=== PATIENT | male | born 1990 | race Two or more races ===

== ENCOUNTER 2024-06-18 16:18 | Inpatient (IN) | payer OTHER ==
[~2024-06-18] VITALS: Ht 167.6 cm; Wt 87.6 kg
[2024-06-18] MEDS: HYDROcodone-ACET 5/325MG TAB PO ONE (17:21)
[2024-06-18] MEDS: ENOXAPARIN SOD 80 MG/0.8ML SYRINGE SC ONE (17:30)
[2024-06-18 17:33] LABS: Basophils # (auto) 0.1 10 ^3/uL (0-0.2); Eosinophils # (auto) 0.2 10 ^3/uL (0-0.8); Eosinophils % (auto) 3.1 % (0.0-7.0); Hematocrit 47.5 % (41.0-53.0); Lymphocytes # (auto) 1.9 10 ^3/uL (0.4-5.4); Lymphocytes % (auto) 26.7 % (10.0-50.0); Mean Corpuscular Hemoglobin 29.7 pg (28.0-32.0); Mean Corpuscular Hgb Conc. 33.7 g/dL (32.0-36.0); Mean Corpuscular Volume 88.2 fL (80.0-100.0); Monocytes # (auto) 0.5 10 ^3/uL (0-1.3); Monocytes % (auto) 7.1 % (0.0-12.0); Neutrophils # (auto) 4.4 10 ^3/uL (1.6-8.6); Neutrophils % (auto) 62.1 % (37.0-80.0); Nucleated Red Blood Cells % 0.1 %; Platelet Count (auto) 260 10^3/uL (140-450); Red Blood Cells 5.39 10^6/uL (4.5-5.90); Red Cell Distribution Width 12.8 % (11.8-14.3)
[2024-06-18 17:42] LABS: Chloride 105 mmol/L (98-107); Potassium 3.8 mmol/L (3.5-5.1); Sodium 137 mmol/L (136-145)
[2024-06-18 17:43] LABS: Anion Gap 6 (5-15); Calcium 9.9 mg/dL (8.7-10.4); Carbon Dioxide 26 mmol/L (20-31)
[2024-06-18 17:48] LABS: Glucose 108 mg/dL (74-106)
[2024-06-18 17:57] LABS: INR 1.07 (0.9-1.15); Prothrombin Time 11.3 sec (9.3-11.8)
[2024-06-18 18:43] LABS: BUN/Creatinine Ratio 12.1 (10.0-20.0); Blood Urea Nitrogen 13 mg/dL (9-23)
[2024-06-18 19:50] VITALS: RESP 20; O2SAT 98
[2024-06-18] MEDS ORDERED: MORPHINE SULFATE INJ 2 MG/ml SYRG IV PRN ×2 (23:00→23:45)
[2024-06-18] MEDS ORDERED: HYDROcodone-ACET 5/325MG TAB PO PRN (23:00)
[2024-06-18] MEDS ORDERED: DOCUSATE SOD 100 MG CAP PO PRN (23:00)
[2024-06-18] MEDS ORDERED: ACETAMINOPHEN 325 MG TAB PO PRN (23:00)
[2024-06-18] MEDS ORDERED: ONDANSETRON HCL 4 MG/2 ML VIAL IV PRN (23:00)
[2024-06-18] MEDS: SODIUM CHLORIDE 0.9% 1,000 ML IV SCH (23:19)
[2024-06-18] MEDS ORDERED: NITROGLYCERIN 0.4 MG SL TAB SL PRN (23:45)
[2024-06-19 06:13] LABS: Basophils # (auto) 0.1 10 ^3/uL (0-0.2); Basophils % (auto) 0.7 % (0.0-2.0); Eosinophils # (auto) 0.2 10 ^3/uL (0-0.8); Eosinophils % (auto) 2.7 % (0.0-7.0); Hematocrit 45.8 % (41.0-53.0); Hemoglobin 15.6 g/dL (13.5-17.5); Lymphocytes # (auto) 2.8 10 ^3/uL (0.4-5.4); Lymphocytes % (auto) 37.5 % (10.0-50.0); Mean Corpuscular Hemoglobin 29.7 pg (28.0-32.0); Mean Corpuscular Volume 87.6 fL (80.0-100.0); Monocytes # (auto) 0.6 10 ^3/uL (0-1.3); Monocytes % (auto) 8.1 % (0.0-12.0); Neutrophils # (auto) 3.9 10 ^3/uL (1.6-8.6); Nucleated Red Blood Cells % 0.2 %; Platelet Count (auto) 260 10^3/uL (140-450); Red Blood Cells 5.23 10^6/uL (4.5-5.90); Red Cell Distribution Width 13.1 % (11.8-14.3); White Blood Cell 7.6 10^3/uL (4.4-10.8)
[2024-06-19 06:33] LABS: Alanine Aminotransferase 46 U/L (7-40); Albumin 4.5 g/dL (3.2-4.8); Alkaline Phosphatase 197 U/L (46-116); Anion Gap 8 (5-15); Aspartate Aminotransferase 22 U/L (13-40); BUN/Creatinine Ratio 12.6 (10.0-20.0); Bilirubin, Total 0.6 mg/dL (0.2-1.0); Blood Urea Nitrogen 12 mg/dL (9-23); Calcium 9.8 mg/dL (8.7-10.4); Carbon Dioxide 25 mmol/L (20-31); Chloride 104 mmol/L (98-107); Glucose 107 mg/dL (74-106); Potassium 3.8 mmol/L (3.5-5.1); Sodium 137 mmol/L (136-145); Total Protein 7.7 g/dL (5.7-8.2)
[2024-06-19 08:28] VITALS: PULSE 86; RESP 19; O2SAT 94
[2024-06-19] MEDS: ENOXAPARIN SOD 80 MG/0.8ML SYRINGE SC SCH (09:50)
[2024-06-19 11:08] LABS: Triglycerides 89 mg/dL (< 150)
[2024-06-19 11:09] LABS: LDL Cholesterol 106 mg/dL (< 100)
[2024-06-19 11:10] LABS: Cholesterol 167 mg/dL (< 200); HDL Cholesterol 40 mg/dL (40-59)
[2024-06-19] MEDS: IOHEXOL 350 MG/ML 100ML IJ ONE (15:39)
[2024-06-19] MEDS ORDERED: HEPARIN DRIP/D5W 100UNITS/ML 250 ML IV SCH (16:15)
[2024-06-19] MEDS: CLOPIDOGREL BISULFATE 75 MG TAB PO ONE (16:36)
[2024-06-19 17:16] VITALS: PULSE 89; RESP 18; O2SAT 97
[2024-06-19 18:26] LABS: INR 1.06 (0.9-1.15); Partial Thromboplastin Time 28.2 SEC (24.5-34.5); Prothrombin Time 11.2 sec (9.3-11.8)
[2024-06-19 18:42] VITALS: BP 126/71; PULSE 89; RESP 17; TEMP 98.5; O2SAT 96
[2024-06-19 20:00] VITALS: PULSE 84; PULSE 89; RESP 18; O2SAT 97
[2024-06-19] MEDS: HEPARIN DRIP/D5W 100UNITS/ML 250 ML IV SCH (20:15)
[2024-06-19 21:00] VITALS: BP 131/92; PULSE 84; RESP 18; TEMP 98.6; O2SAT 97
[2024-06-20] VITALS (10 sets, daily range): BP systolic 120–140; BP diastolic 79–94; PULSE 72–93; RESP 14–20; TEMP 97.4–98.6; O2SAT 93–100
[2024-06-20 02:28] LABS: Basophils # (auto) 0 10 ^3/uL (0-0.2); Basophils % (auto) 0.5 % (0.0-2.0); Eosinophils # (auto) 0.5 10 ^3/uL (0-0.8); Eosinophils % (auto) 6.2 % (0.0-7.0); Hematocrit 47.6 % (41.0-53.0); Lymphocytes # (auto) 3.4 10 ^3/uL (0.4-5.4); Lymphocytes % (auto) 45.8 % (10.0-50.0); Mean Corpuscular Hemoglobin 29.6 pg (28.0-32.0); Mean Corpuscular Hgb Conc. 33.5 g/dL (32.0-36.0); Mean Corpuscular Volume 88.3 fL (80.0-100.0); Monocytes # (auto) 0.7 10 ^3/uL (0-1.3); Monocytes % (auto) 9.6 % (0.0-12.0); Neutrophils # (auto) 2.8 10 ^3/uL (1.6-8.6); Neutrophils % (auto) 37.9 % (37.0-80.0); Nucleated Red Blood Cells % 0.2 %; Platelet Count (auto) 258 10^3/uL (140-450); Red Blood Cells 5.39 10^6/uL (4.5-5.90); Red Cell Distribution Width 13.2 % (11.8-14.3); White Blood Cell 7.4 10^3/uL (4.4-10.8)
[2024-06-20 02:41] LABS: Alanine Aminotransferase 56 U/L (7-40); Alkaline Phosphatase 188 U/L (46-116); Anion Gap 5 (5-15); Aspartate Aminotransferase 32 U/L (13-40); BUN/Creatinine Ratio 10.3 (10.0-20.0); Blood Urea Nitrogen 10 mg/dL (9-23); Calcium 9.7 mg/dL (8.7-10.4); Carbon Dioxide 24 mmol/L (20-31); Chloride 107 mmol/L (98-107); Glucose 105 mg/dL (74-106); Potassium 4.1 mmol/L (3.5-5.1); Sodium 136 mmol/L (136-145)
[2024-06-20 02:42] LABS: Albumin 4.5 g/dL (3.2-4.8); Bilirubin, Total 0.8 mg/dL (0.2-1.0); Total Protein 7.6 g/dL (5.7-8.2)
[2024-06-20 02:43] LABS: INR 1.07 (0.9-1.15); Prothrombin Time 11.3 sec (9.3-11.8)
[2024-06-20 07:40] LABS: INR 1.07 (0.9-1.15); Partial Thromboplastin Time 53.2 SEC (24.5-34.5); Prothrombin Time 11.3 sec (9.3-11.8)
[2024-06-20 08:50] LABS: Hepatitis B Surface Antigen Negative (Negative)
[2024-06-20 09:11] LABS: Hepatitis C Antibody Negative (Negative)
[2024-06-20 11:09] LABS: INR 1.07 (0.9-1.15); Partial Thromboplastin Time 59.6 SEC (24.5-34.5); Prothrombin Time 11.3 sec (9.3-11.8)
[2024-06-20] MEDS: IODIXANOL 320MG/ML 100ML BTL IV ONE (12:28)
[2024-06-20] MEDS: HEPARIN IN NS 1000Units/500mL 1,500 ML ONE (12:28)
[2024-06-20] MEDS: fentaNYL CITRATE 100 MCG/2 ML VL ONE (14:02)
[2024-06-20] MEDS: MIDAZOLAM HCL 2MG/2ML 2ml VIAL (1mg/ml) ONE (14:02)
[2024-06-20] MEDS: LIDOCAINE 2%HCL (LOCAL ANESTH.) INJ 20ML MDV ONE (14:03)
[2024-06-20] MEDS: HEPARIN SODIUM (PORCINE) 5000 UNITS/ML 1ML VIAL ONE (14:36)
[2024-06-20] MEDS: HYDROmorphone HCL 2 MG/ML VL/or syr ONE (14:40)
[2024-06-20] MEDS: HEPARIN 1,000 UNITS/ml 1ML VIAL ONE (15:11)
[2024-06-20 17:18] LABS: INR 1.14 (0.9-1.15)
[2024-06-20 18:16] LABS: Partial Thromboplastin Time > 139.0 SEC (24.5-34.5)
[2024-06-20] MEDS: HEPARIN DRIP/D5W 100UNITS/ML 250 ML IV SCH (19:30)
[2024-06-21] VITALS (7 sets, daily range): BP systolic 115–139; BP diastolic 80–87; PULSE 82–106; RESP 16–20; TEMP 37.1; O2SAT 94–98
[2024-06-21 01:54] LABS: INR 1.07 (0.9-1.15); Partial Thromboplastin Time 46.1 SEC (24.5-34.5); Prothrombin Time 11.3 sec (9.3-11.8)
[2024-06-21] MEDS: HEPARIN DRIP/D5W 100UNITS/ML 250 ML IV SCH (03:30)
[2024-06-21 05:43] LABS: Basophils # (auto) 0 10 ^3/uL (0-0.2); Basophils % (auto) 0.6 % (0.0-2.0); Eosinophils # (auto) 0.4 10 ^3/uL (0-0.8); Eosinophils % (auto) 5.4 % (0.0-7.0); Hemoglobin 14.8 g/dL (13.5-17.5); Lymphocytes # (auto) 3.2 10 ^3/uL (0.4-5.4); Lymphocytes % (auto) 38.6 % (10.0-50.0); Mean Corpuscular Hemoglobin 29.9 pg (28.0-32.0); Mean Corpuscular Hgb Conc. 32.9 g/dL (32.0-36.0); Mean Corpuscular Volume 90.9 fL (80.0-100.0); Monocytes # (auto) 0.8 10 ^3/uL (0-1.3); Monocytes % (auto) 10.1 % (0.0-12.0); Neutrophils # (auto) 3.8 10 ^3/uL (1.6-8.6); Neutrophils % (auto) 45.3 % (37.0-80.0); Platelet Count (auto) 295 10^3/uL (140-450); Red Blood Cells 4.95 10^6/uL (4.5-5.90); Red Cell Distribution Width 13.1 % (11.8-14.3); White Blood Cell 8.3 10^3/uL (4.4-10.8)
[2024-06-21 05:44] LABS: Chloride 105 mmol/L (98-107); Potassium 3.9 mmol/L (3.5-5.1); Sodium 134 mmol/L (136-145)
[2024-06-21 05:45] LABS: Anion Gap 4 (5-15); Calcium 9.7 mg/dL (8.7-10.4); Carbon Dioxide 25 mmol/L (20-31)
[2024-06-21 05:50] LABS: BUN/Creatinine Ratio 12.1 (10.0-20.0); Blood Urea Nitrogen 11 mg/dL (9-23); Glucose 96 mg/dL (74-106)
[2024-06-21] MEDS ORDERED: APIX5TAB PO (12:31)
[2024-06-21 12:41] LABS: INR 1.07 (0.9-1.15); Partial Thromboplastin Time 46.2 SEC (24.5-34.5); Prothrombin Time 11.3 sec (9.3-11.8)
[2024-06-22 18:06] LABS: Protein S Antigen Free 126 % (61-136); Proten S Antigen Total 130 % (60-150)
[2024-06-24 22:06] LABS: Protein C Antigen 86 % (60-150)
== END 2024-06-21 17:05 | disposition home or self-care (01) | DRG 182 ==
LOC: ER 16:18 → EDSEX 16:18 → TELE 23:32 → TELE-EAST 06-19 16:46
PROVIDERS: ADMIT Nurse Practitioner Family; ATTEND Hospitalist
PROC: 06CY3ZZ Extirpation of Matter from Lower Vein, Percutaneous Approach (ICD-10-PCS; principal; 2024-06-20)
PROC: 06CN3ZZ Extirpation of Matter from Left Femoral Vein, Percutaneous Approach (ICD-10-PCS; 2024-06-20)
PROC: B54CZZ3 Ultrasonography of Left Lower Extremity Veins, Intravascular (ICD-10-PCS; 2024-06-20)
PROC: B519YZZ Fluoroscopy of Inferior Vena Cava using Other Contrast (ICD-10-PCS; 2024-06-20)
PROC: B51CYZZ Fluoroscopy of Left Lower Extremity Veins using Other Contrast (ICD-10-PCS; 2024-06-20)
DX: I82.412 Acute embolism and thrombosis of left femoral vein (principal); I26.99 Other pulmonary embolism without acute cor pulmonale; I82.432 Acute embolism and thrombosis of left popliteal vein; E66.9 Obesity, unspecified; Z68.31 Body mass index [BMI] 31.0-31.9, adult; I82.462 Acute embolism and thrombosis of left calf muscular vein; I82.442 Acute embolism and thrombosis of left tibial vein; I82.452 Acute embolism and thrombosis of left peroneal vein; F10.90 Alcohol use, unspecified, uncomplicated; Y90.9 Presence of alcohol in blood, level not specified; Z68.30 Body mass index [BMI] 30.0-30.9, adult
CPT/HCPCS: 36415; 37187; 71275; 74176; 75710; 80048; 80053; 80061; 81241; 83036; 84443; 85025; 85302; 85305; 85306; 85610; 85730; 86803; 87340; 93306; 93971; 96372; 99152; G0378; J2250; Q9967

== ENCOUNTER 2024-07-07 15:49 | Inpatient (IN) | payer OTHER ==
[~2024-07-07] VITALS: Ht 167.6 cm; Wt 94.9 kg
[~2024-07-07 15:49] MED LIST: APIX5TAB PO
--- NOTE | 2024-07-07 16:42 | ED.PDOC ---
Musculoskeletal HPI Comments 33y M who presents to the ED for chief complaint of lower extremity pain. Pt states he had venogram 2 weeks prior and clot was found in LLE and pt was placed on eliquis and discharged. Pt states he was told to come back if he had any associated pain or swelling near the LLE. Pt states he noticed swelling, bruising and redness to the posterior LLE and came to the ED for further evaluation. Pt otherwise denies fever, cough, shortness of breath, chest pain, headache, dizziness, nausea or vomiting. Pt vitals otherwise stable in the ED. Pt otherwise denies any other symptoms at this time. Chief Complaint: Lower Extremity Time Seen by MD: 16:40 Primary Care Provider: UNKNOWN Reviewed Notes: Medications, Allergies Allergies: Coded Allergies: NO KNOWN ALLERGIES (Unverified , 06/18/24) Home Meds Active Scripts Apixaban Base (ELIQUIS) 5 Mg Tab, 5 MG PO BID, #120 TAB 1 Refill take 10mg (two tabs) twice a day for fisrt 7 days then start taking 5mg (one tab) twice a day Prov:TRAVON BECERRA MD 06/21/24 Information Source: Patient Mode of Arrival: Ambulatory Brought in by: self Past Medical History PAST MEDICAL HISTORY: Denies Surgical History: Denies all surgeries Family History Family History: Reviewed,noncontributory to illness Social History Smoker: Non-Smoker Alcohol: Occasionally Drugs: Denies Drug Use Lives In: Home Constitutional: denies: chills, diaphoresis, fatigue, fever, malaise, sweats, weakness, others EENTM: denies: blurred vision, double vision, ear bleeding, ear discharge, ear drainage, ear pain, ear ringing, eye pain, eye redness, hearing loss, mouth pain, mouth swelling, nasal discharge, nose bleeding, nose congestion, nose pain , photophobia, tearing, throat pain, throat swelling, voice changes, others Respiratory: denies: cough, hemoptysis, orthopnea, SOB at rest, shortness of breath, SOB with excertion, stridor, wheezing, others Cardiovascular: denies: chest pain, dizzy spells, diaphoresis, Dyspnea on exertion, edema, irregular heart beat, left arm pain, lightheadedness, palpitations, PND, syncope, others Gastrointestinal: denies: abdomen distended, abdominal pain, blood streaked bowels, constipated, diarrhea, dysphagia, difficulty swallowing, hematemesis, melena, nausea, poor appetite, poor fluid intake, rectal bleeding, rectal pain, vomiting, others Genitourinary: denies: burning, dysuria, flank pain, frequency, hematuria, incontinence, penile discharge, penile sore, pain, testicle pain, testicle swelling, urgency, others Neurological: denies: dizziness, fainting, headache, left sided numbness, left sided weakness, numbness, paresthesia, pre-existing deficit, right sided numbness, right sided weakness, seizure, speech problems, tingling, tremors, weakness, others Musculoskeletal: reports: joint pain (LLE), joint swelling (LLE); denies: back pain, gout, muscle pain, muscle stiffness, neck pain, others Integumetry: denies: bruises, change in color, change in hair/nails, dryness, laceration, lesions, lumps, rash, wounds, others Allergic/Immunocompromised: denies: Difficulty Healing, Frequent Infections, Hives, Itching, others Hematologic/Lymphatic: denies: anemia, blood clots, easy bleeding, easy bruising, swollen glands, others Endocrine: denies: excessive hunger, excessive sweating, excessive thirst, excessive urination, flushing, intolerance to cold, intolerance to heat, unexplained weight gain, unexplained weight loss, others Psychiatric: denies: anxiety, bipolar disorder, depression, hopeless, panic disorder, schizophrenia, sleepless, suicidal, others All Other Systems: Reviewed and Negative Physical Exam General Appearance: Moderate Distress HEENT: Normal ENT Inspection, Pharynx Normal, TMs Normal Neck: Full Range of Motion, Non-Tender, Normal, Normal Inspection Respiratory: Chest Non-Tender, Lungs Clear, No Accessory Muscle Use, No Respiratory Distress, Normal Breath Sounds Cardiovascular: No Edema, No JVD, No Murmur, No Gallop, Normal Peripheral Pulses, Regular Rate/Rhythm Breast Exam: Deferred Gastrointestinal: No Organomegaly, Non Tender, No Pulsatile Mass, Normal Bowel Sounds, Soft Genitalia: Deferred Pelvic: Deferred Rectal: Deferred Extremities: No calf tenderness, Normal capillary refill, Normal inspection, Normal range of motion, Non-tender, No pedal edema Musculoskeletal : Apperance: Normal Neurologic: Alert, patient placement coordinator II-XII nml as Tested, No Motor Deficits, Normal Affect, Normal Mood, No Sensory Deficits Cerebellar Function: Normal Reflexes: Normal Skin: Dry, Normal Color, Warm Peripheral Pulses: 3+ Radial (R), 3+ Radial (L) Lymphatic: No Adenopathy Was a procedure done? Was a procedure done?: No Differential Diagnosis EXT Differential Diagnosis: Cellulitis, Deep Vein Thrombosis, Compartment Syndrome X-Ray, Labs, Meds, VS Vital Signs Date Time Temp Pulse Resp B/P (MAP) Pulse Ox O2 Delivery O2 Flow Rate FiO2 07/07/24 15:51 98.5 95 18 131/85 (100) 97 Patient alert. History of DVT. Currently on Eliquis. Came in because he was having left lower extremity pain. No calf tenderness. No leg swelling appreciated. No shortness a breath. Respiratory rate within normal limits. Denies chest pain. DVT study shows clot from femoral down. Contact for interventional. Explained to the patient. Was told to follow up with his primary care physician. Was told to come back if there is any problem. Time of 1ST Reevaluation: 17:10 Reevaluation 1ST: Unchanged Patient Education/Counseling: Diagnosis, Treatment Family Education/Counseling: No Family Present Departure 1 Departure Time of Disposition: 18:11 Impression: Primary Impression: Deep vein thrombosis (DVT) of left lower extremity Qualified Codes: I82.412 - Acute embolism and thrombosis of left femoral vein Disposition: ADMITTED INPATIENT Admit to: Med Surg Condition: Guarded Critical Care Note Critical Care Time?: Yes (45 min-critical care time only) Stability Stability form required: No Heart Score Heart Score: Heart Score Response (Comments) Value History N/A 0 EKG N/A 0 Age N/A 0 Risk Factors N/A 0 Troponin N/A 0 Total 0 I personally scribed for BYRON TINAJERO MD ([email or web address]) on 07/07/24 at 16:42. Electronically submitted by Randy Fitzpatrick ([email or web address]). BYRON TINAJERO MD Jul 07, 2024 16:42
--- NOTE | 2024-07-07 18:31 | DVH ---
Bilateral lower extremity venous duplex Clinical History: dvt Comparison: US LT LOWER DVT on DOS: 06/18/24 Technique: Duplex Doppler evaluation of the deep venous systems of both lower extremities from the common femora l veins to the popliteal veins including color Doppler and spectral/pulsed waveform analysis was perf ormed. Findings: RIGHT SIDE: The common femoral vein demonstrates appropriate compressibility and waveform variability. There is compressibility/patency of the great saphenous vein at the proximal thigh. The femoral vein demonstrates appropriate compressibility and waveform variability. The deep femoral vein demonstrates appropriate compressibility and waveform variability. The popliteal vein demonstrates appropriate compressibility and waveform variability. There is normal compressibility at the tibioperoneal trunk. LEFT SIDE: Incompressibility from the superficial femoral vein to the posterior tibial vein. Impression: Left-sided DVT from the superficial femoral vein to the posterior tibial vein. Per outbound supervisor note, the critical findings were discussed with the ordering provider.
[2024-07-07 19:08] LABS: Basophils # (auto) 0.1 10 ^3/uL (0-0.2); Basophils % (auto) 0.7 % (0.0-2.0); Eosinophils # (auto) 0.3 10 ^3/uL (0-0.8); Eosinophils % (auto) 3.2 % (0.0-7.0); Hematocrit 46.8 % (41.0-53.0); Hemoglobin 15.9 g/dL (13.5-17.5); Lymphocytes % (auto) 37.7 % (10.0-50.0); Mean Corpuscular Hemoglobin 29.9 pg (28.0-32.0); Monocytes # (auto) 0.5 10 ^3/uL (0-1.3); Monocytes % (auto) 5.9 % (0.0-12.0); Neutrophils # (auto) 4.2 10 ^3/uL (1.6-8.6); Neutrophils % (auto) 52.5 % (37.0-80.0); Nucleated Red Blood Cells % 0.1 %; Platelet Count (auto) 319 10^3/uL (140-450); Red Blood Cells 5.32 10^6/uL (4.5-5.90); Red Cell Distribution Width 12.9 % (11.8-14.3); White Blood Cell 7.9 10^3/uL (4.4-10.8)
[2024-07-07 19:40] LABS: Chloride 105 mmol/L (98-107); Potassium 3.9 mmol/L (3.5-5.1); Sodium 139 mmol/L (136-145)
[2024-07-07 19:41] LABS: Anion Gap 6 (5-15); Carbon Dioxide 28 mmol/L (20-31)
[2024-07-07 19:46] LABS: BUN/Creatinine Ratio 11.8 (10.0-20.0); Blood Urea Nitrogen 12 mg/dL (9-23); Glucose 102 mg/dL (74-106)
[2024-07-07] MEDS ORDERED: MORPHINE SULFATE INJ 2 MG/ml SYRG IV PRN (20:30)
[2024-07-07] MEDS ORDERED: ONDANSETRON HCL 4 MG/2 ML VIAL IV PRN (20:30)
[2024-07-07] MEDS ORDERED: NITROGLYCERIN 0.4 MG SL TAB SL PRN (20:30)
[2024-07-07] MEDS ORDERED: HYDROcodone-ACET 5/325MG TAB PO PRN (20:30)
[2024-07-07] MEDS: SODIUM CHLOR 0.9% PF (SALINE LOCK) 10ML VIAL/SYR IV SCH (22:21)
[2024-07-07 22:30] VITALS: BP 123/84; PULSE 84; TEMP 98.3
[2024-07-07 22:44] VITALS: BP 118/78; PULSE 72; PULSE 87; RESP 18; TEMP 98.8; O2SAT 96
[2024-07-08] VITALS (12 sets, daily range): BP systolic 111–123; BP diastolic 68–85; PULSE 65–87; RESP 12–18; TEMP 97.8–99.1; O2SAT 94–99
--- NOTE | 2024-07-08 00:01 | DVHHPRES ---
History of Present Illness Resident Creating Document: MARGAUX RAMIREZ RESIDENT History of Present Illness This is a 33 years old male with past medical history of DVT status post mechanical thrombectomy 2 weeks ago, PE presented to the ED with the chief complaint of left lower leg swelling and bruising on the back of the leg for 2 days prior to this admission. Pt states he was diagnosed with left lower extremity DVT 2 weeks ago, mechanical thrombectomy was done and discharged with Eliquis 5 mg b.i.d. Pt states he noticed swelling, bruising and redness to the posterior LLE and came to the ED for further evaluation. Pt otherwise denies fever, cough, shortness of breath, chest pain, headache, dizziness, nausea or vomiting. He was compliant with taking Eliquis 5 mg b.i.d. and did not notice any bleeding or bruises anywhere in the body. Past Medical History DVT, PE Past Surgical History Mechanical thrombectomy Family History: None Smoke: No ALCOHOL: none Drugs: None Lives: with Family Review of Systems Constitutional: No: Fever, Chills, Sweats, Weakness, Malaise, Other Eyes: No: Pain, Vision change, Conjunctivae inflammation, Eyelid inflammation, Other, Redness ENT: No: Ear pain, Ear discharge, Nose pain, Nose discharge, Nose congestion, Mouth pain, Mouth swelling, Throat pain, Throat swelling, Other Respiratory: No: Cough, Dry, Shortness of breath, SOB with excertion, Wheezing, Hemoptysis, Pleuritic Pain, Sputum, Wheezing, Other Cardiovascular: No: Chest Pain, Palpitations, Orthopnea, Paroxysmal Noc. Dyspnea, Edema, Lt Headedness, Other Gastrointestinal: No: Nausea, Vomiting, Abdominal Pain, Diarrhea, Constipation, Melena, Hematochezia, Other Genitourinary: No Dysuria, No Frequency, No Incontinence, No Hematuria, No Retention, No Other Musculoskeletal: leg pain; No: other, neck pain, shoulder pain, arm pain, back pain, hand pain, foot pain Skin: No: Rash, Lesions, Jaundice, Bruising, Other Neurological: No: Weakness, Numbness, Incoordination, Change in speech, Confusion, Seizures, Other Allergies: Coded Allergies: NO KNOWN ALLERGIES (Unverified , 06/18/24) Medications Current Medications Medications Dose Ordered Sig/Juliano Route Start Time Stop Time Status Last Admin Dose Admin Sodium Chloride 10 ml Q8HR IV 07/07/24 22:00 07/07/24 22:21 10 ML Acetaminophen 325 mg Q4HP PRN PO 07/07/24 20:30 Acetaminophen/ Hydrocodone Bitart 1 tab Q4HP PRN PO 07/07/24 20:30 Ondansetron HCl 4 mg Q4HP PRN IV 07/07/24 20:30 Nitroglycerin 0.4 mg Q5MINP PRN SL 07/07/24 20:30 Morphine Sulfate 2 mg Q30M PRN IV 07/07/24 20:30 Apixaban 5 mg BID PO 07/08/24 10:00 Exam Vital Signs Vital Signs Date Time Temp Pulse Resp B/P (MAP) Pulse Ox O2 Delivery O2 Flow Rate FiO2 07/07/24 22:30 98.3 84 123/84 (97) 98.3 07/07/24 22:30 Room Air* 0 21 07/07/24 15:51 18 97 Exam Physical examination: General Appearance: Alert, Oriented X3, Cooperative, No acute distress HEENT: Atraumatic, PERRLA, EOMI, Mucous membrane moist/pink Respiratory: Clear to auscultation, Normal air movement Cardiovascular: Regular rate, Normal S1, Normal S2, No murmurs, no chest wall tenderness Abdominal: Normal bowel sounds, Soft, No tenderness, No hepatospenomegaly, No masses Extremities: Swelling of the left leg and bruising on the back of the calf, no clubbing, No cyanosis, No edema, Normal pulses. Skin: No rashes, No breakdown, No significant lesion Neuro: Normal gait, Normal speech, Strength at 5/5 X4 ext, Normal tone, Sensation intact, grossly intact cranial nerves Psych/Mental Status: Mental status NL, Mood NL Labs/Xrays Labs Test 07/07/24 23:39 07/07/24 18:21 Range/Units White Blood Count 7.9 4.4-10.8 10^3/uL Red Blood Count 5.32 4.5-5.90 10^6/uL Hemoglobin 15.9 13.5-17.5 g/dL Hematocrit 46.8 41.0-53.0 % Mean Corpuscular Volume 88.0 80.0-100.0 fL Mean Corpuscular Hemoglobin 29.9 28.0-32.0 pg Mean Corpuscular Hemoglobin Concent 34.0 32.0-36.0 g/dL Red Cell Distribution Width 12.9 11.8-14.3 % Platelet Count 319 140-450 10^3/uL Mean Platelet Volume 8.5 6.9-10.8 fL Neutrophils (%) (Auto) 52.5 37.0-80.0 % Lymphocytes (%) (Auto) 37.7 10.0-50.0 % Monocytes (%) (Auto) 5.9 0.0-12.0 % Eosinophils (%) (Auto) 3.2 0.0-7.0 % Basophils (%) (Auto) 0.7 0.0-2.0 % Neutrophils # (Auto) 4.2 1.6-8.6 10 ^3/uL Lymphocytes # (Auto) 3.0 0.4-5.4 10 ^3/uL Monocytes # (Auto) 0.5 0-1.3 10 ^3/uL Eosinophils # (Auto) 0.3 0-0.8 10 ^3/uL Basophils # (Auto) 0.1 0-0.2 10 ^3/uL Nucleated Red Blood Cells 0.1 % Sodium Level 139 136-145 mmol/L Potassium Level 3.9 3.5-5.1 mmol/L Chloride Level 105 98-107 mmol/L Carbon Dioxide Level 28 20-31 mmol/L Anion Gap 6 5-15 Blood Urea Nitrogen 12 9-23 mg/dL Creatinine 1.02 0.700-1.30 mg/dL Glomerular Filtration Rate Calc 99 >90 mL/min BUN/Creatinine Ratio 11.8 10.0-20.0 Serum Glucose 102 74-106 mg/dL Calcium Level 10.0 8.7-10.4 mg/dL Assessment/Plan Assessment/Plan Assessment and plan: # Possible recurrent DVT in the left lower extremity - History of DVT and bilateral PE and status post mechanical thrombectomy 2 weeks ago. - Doppler scan of the lower limb demonstrates left-sided DVT from the superficial femoral vein to the posterior tibial vein. - Continue Eliquis 5 mg b.i.d. - Coagulation profile is normal - Patient is on room air - Monitor the vitals. Goal of care discussed with the patient for more than 20 minutes full code Plan of treatment discussed with Dr. Sidhu Plan discussed with: Patient, Other My Orders Orders - MARGAUX RAMIREZ RESIDENT Procedure Category Date Status Time Admit ADMIT 07/07/24 Transmitted 20:28 Allergies RAGHU 07/07/24 In Process 20:28 Code Status CODE 07/07/24 Transmitted 20:28 Sodium Chloride Lock PHA 07/07/24 In Process (Saline Lock Ns) 22:00 Oxygen Per Hour RT 07/07/24 Transmitted 20:28 Acetaminophen Tablet PHA 07/07/24 In Process (Tylenol Tablet) 20:30 Hydrocodone-Acet PHA 07/07/24 In Process 5/325mg Tab ([place] 20:30 Ondansetron Hcl PHA 07/07/24 In Process (Zofran) 20:30 Complete Blood Count LAB 07/08/24 Transmitted 04:00 Comprehensive LAB 07/08/24 Transmitted Metabolic Panel 04:00 Nitroglycerin PHA 07/07/24 In Process Sublingual (Ntrostat 20:30 Morphine Sulfate PHA 07/07/24 In Process Injection 20:30 Oxygen By Nasal RT 07/07/24 Transmitted Cannula 20:28 Stat Ekg For Chest RAGHU 07/07/24 In Process Pain 20:28 Notify Of Changes RAGHU 07/07/24 In Process From Base 20:28 Board Machine Set Up Operator For RAGHU 07/07/24 In Process 24 Hours 20:28 Emergency Dysrhythmia RAGHU 07/07/24 In Process Protocol 20:28 Rhythm Strips Once RAGHU 07/07/24 In Process Every Shift 20:28 Apixaban (Eliquis) PHA 07/08/24 In Process 10:00 Urinalysis LAB 07/07/24 Uncollected 23:16 PTPTT LAB 07/07/24 In Process 23:16 Chest Portable XY 07/07/24 Logged 23:16 Mrsa Screen SHELBY 07/07/24 In Process 23:20 MARGAUX RAMIREZ RESIDENT Jul 08, 2024 00:01
[2024-07-08 00:09] LABS: INR 1.11 (0.9-1.15); Partial Thromboplastin Time 27.3 SEC (24.5-34.5); Prothrombin Time 11.7 sec (9.3-11.8)
[2024-07-08 00:32] LABS: Urine Bacteria None Seen /hpf (None Seen)
[2024-07-08 00:53] LABS: Urine Blood Negative /uL (Negative); Urine Clarity Clear (Clear); Urine Color Light-Yellow (Yellow); Urine Mucus FEW (None Seen); Urine Protein, UAD Negative (Negative); Urine Specific Gravity 1.019 (1.001-1.035); Urine Urobilinogen Normal (Negative); Urine WBC <1 /hpf (0 - 3); Urine pH 5.5 (5.0-9.0)
[2024-07-08 05:56] LABS: Basophils # (auto) 0.1 10 ^3/uL (0-0.2); Basophils % (auto) 0.7 % (0.0-2.0); Eosinophils # (auto) 0.4 10 ^3/uL (0-0.8); Eosinophils % (auto) 4.7 % (0.0-7.0); Hematocrit 44.6 % (41.0-53.0); Lymphocytes # (auto) 3.4 10 ^3/uL (0.4-5.4); Lymphocytes % (auto) 45.4 % (10.0-50.0); Mean Corpuscular Hemoglobin 29.5 pg (28.0-32.0); Mean Corpuscular Hgb Conc. 33.8 g/dL (32.0-36.0); Mean Corpuscular Volume 87.3 fL (80.0-100.0); Monocytes # (auto) 0.6 10 ^3/uL (0-1.3); Monocytes % (auto) 7.4 % (0.0-12.0); Neutrophils # (auto) 3.2 10 ^3/uL (1.6-8.6); Neutrophils % (auto) 41.8 % (37.0-80.0); Nucleated Red Blood Cells % 0.3 %; Platelet Count (auto) 281 10^3/uL (140-450); Red Cell Distribution Width 13.2 % (11.8-14.3); White Blood Cell 7.6 10^3/uL (4.4-10.8)
[2024-07-08 06:19] LABS: Alanine Aminotransferase 48 U/L (7-40); Alkaline Phosphatase 163 U/L (46-116); Anion Gap 7 (5-15); BUN/Creatinine Ratio 9.7 (10.0-20.0); Blood Urea Nitrogen 9 mg/dL (9-23); Carbon Dioxide 27 mmol/L (20-31); Chloride 106 mmol/L (98-107); Glucose 102 mg/dL (74-106); Potassium 3.8 mmol/L (3.5-5.1); Sodium 140 mmol/L (136-145)
[2024-07-08 06:20] LABS: Albumin 4.2 g/dL (3.2-4.8)
[2024-07-08 06:21] LABS: Aspartate Aminotransferase 19 U/L (13-40); Bilirubin, Total 0.7 mg/dL (0.2-1.0); Total Protein 7.2 g/dL (5.7-8.2)
[2024-07-08 08:32] LABS: Amphetamine Screen, Urine Neg (NEGATIVE); Barbiturate Scree,Urine Neg (NEGATIVE); Benzodiazephine Screen, Urine Neg (NEGATIVE); Cannabinoid Screen, Urine Neg (NEGATIVE); Cocaine Screen, Urine Neg (NEGATIVE); Opiate Scree,Urine Neg (NEGATIVE); Phencyclidine Screen, Urine Neg (NEGATIVE)
--- NOTE | 2024-07-08 08:41 | DVH ---
CHEST RADIOGRAPH Indication:chest pain Technique: Single frontal view of the chest was obtained Comparison: CT chest 06/19/2024 FINDINGS: Lines and Tubes: None Lungs: No focal consolidation. Pleura: No effusion.No pneumothorax. Cardiomediastinal contours: Unremarkable Bones: No acute osseous abnormality. IMPRESSION: 1. No acute cardiopulmonary disease. HS:Y
[2024-07-08] MEDS: APIXABAN 5 MG TAB PO SCH (09:40)
[2024-07-08] MEDS: HEPARIN IN NS 1000Units/500mL 1,500 ML ONE (13:29)
[2024-07-08] MEDS: IODIXANOL 320MG/ML 100ML BTL IV ONE ×2 (13:29→13:53)
[2024-07-08] MEDS: fentaNYL CITRATE 100 MCG/2 ML VL ONE (13:50)
[2024-07-08] MEDS: MIDAZOLAM HCL 2MG/2ML 2ml VIAL (1mg/ml) ONE (13:50)
[2024-07-08] MEDS: LIDOCAINE 2%HCL (LOCAL ANESTH.) INJ 20ML MDV ONE (13:53)
[2024-07-08] MEDS: HEPARIN SODIUM (PORCINE) 5000 UNITS/ML 1ML VIAL ONE (14:39)
[2024-07-08] MEDS: HEPARIN 1,000 UNITS/ml 1ML VIAL ONE (14:52)
[2024-07-08] MEDS: ACETAMINOPHEN 325 MG TAB PO PRN (16:21)
--- NOTE | 2024-07-08 17:44 | DVHPNRES ---
Progress Note Date Seen: Jul 08, 2024 Resident Creating Document: KENNETH MCINTYRE RESIDENT Medical Necessity Reason Pt with a Central, PICC or Fol: No Subjective Review of Systems Patient is a 33-year-old male with past medical history of DVT, pulmonary embolism s/p mechanical thrombectomy 2 weeks ago, who came in due to swelling, tightness of the left lower extremity for the past 2 days. Patient was recently admitted at the [facility] for a left lower extremity DVT, PE and underwent mechanical thrombectomy and was discharged on Eliquis 5 mg b.i.d. that he has been compliant with. Patient denies having similar symptoms in the past. Lower extremity Doppler showed left-sided DVT from superficial femoral vein to the posterior tibial vein. Past surgical history: Mechanical thrombectomy Home medications: Eliquis 5 mg b.i.d. Past Hospitalization: In May 2024 for DVT Social & Personal history: Patient lives with family. Denies using tobacco, alcohol, drugs. Allergies: Denies Patient seen and examined at bedside. Patient is alert and oriented to time, place person and responding to all questions. Eyes: No Pain, No Vision change, No Conjunctivae inflammation, No Eyelid inflammation, No Other, No Redness ENT: No Ear pain, No Ear discharge, No Nose pain, No Nose discharge, No Nose congestion, No Mouth pain, No Mouth swelling, No Throat pain, No Throat swelling, No Other Cardiovascular: No Chest Pain, No Palpitations, No Orthopnea, No Paroxysmal No Dyspnea, No Edema, No Lt Headedness, No Other Respiratory: No Cough, No Dry, No Shortness of breath, No SOB with exertion, No Wheezing, No Hemoptysis, No Pleuritic Pain, No Sputum, No Other Gastrointestinal: No Nausea, No Vomiting, No Abdominal Pain, No Diarrhea, No Constipation, No Melena, No Hematochezia, No Other Genitourinary: No Dysuria, No Frequency, No Incontinence, No Hematuria, No Retention, No Other Musculoskeletal: No other, No neck pain, No shoulder pain, No arm pain, No back pain, No hand pain, Leg pain, No foot pain Skin: No Rash, No Lesions, No Jaundice, No Bruising, No Other Objective vital signs Vital Sign Date Time Temp Pulse Resp B/P (MAP) Pulse Ox O2 Delivery O2 Flow Rate FiO2 07/08/24 16:39 65 17 116/80 (92) 96 07/08/24 16:24 97.8 97.8 07/08/24 08:10 Room Air* 0 21 Total Intake and Output 07/07/24 07/07/24 07/08/24 15:00 23:00 07:00 Intake Total 0 ml Balance 0 ml medications Current Medications Medications Dose Ordered Sig/Juliano Route Start Time Stop Time Status Last Admin Dose Admin Sodium Chloride 10 ml Q8HR IV 07/07/24 22:00 07/08/24 14:00 10 ML Acetaminophen 325 mg Q4HP PRN PO 07/07/24 20:30 07/08/24 16:21 325 MG Ondansetron HCl 4 mg Q4HP PRN IV 07/07/24 20:30 Nitroglycerin 0.4 mg Q5MINP PRN SL 07/07/24 20:30 Morphine Sulfate 2 mg Q30M PRN IV 07/07/24 20:30 Apixaban 5 mg BID PO 07/08/24 10:00 07/08/24 09:40 5 MG Examination General Appearance: Cooperative. Well developed. Well nourished. NAD Head Exam: Normal inspection Neck Exam: Normal inspection. Non-tender. Normal alignment Pulmonary/Respiratory: Chest non-tender. Clear bilateral breath sounds, no crackles, no wheezing. Cardiovascular/Chest: Regular rate and rhythm. No murmurs. No JVD. Peripheral Pulses: 2+ Radial (R). 2+ Radial (L). 2+ Pedal (R). 2+ Pedal (L) Abdominal Exam: Normal bowel sounds. Soft. normal abdomen, no visible veins, Nontender. No hepatospenomegaly. No masses Ankle Exam: Negative ankle edema Lower extremities: Negative lower extremity edema. Left lower extremity swelling and bruising noted Neuro/Mental Status: A&O x4. Coherent. Thoughts/Psych: Normal thought pattern. Appropriate mood and affect. Good judgement and insight Skin Exam: Normal inspection. Normal color. Warm. Dry laboratory and microbiology Laboratory Tests 07/08/24 04:58 Test 07/08/24 04:58 Range/Units Serum Glucose 102 74-106 mg/dL Microbiology Date/Time Source Procedure Growth Status 07/07/24 23:00 Nose MRSA Screen - Final Complete Problem List/Assessment/Plan Problem List/Assessment/Plan DVT left lower extremity Anticoagulation failure Questionable pulmonary embolism - extremity venous study: Left-sided DVT from the superficial femoral vein to the posterior tibial vein. - CXR: No acute cardiopulmonary disease - patient underwent thrombectomy on 07/08/2024 - apixaban 5 mg p.o. b.i.d. - ordered V/Q scan to rule out pulmonary embolism DVT prophylaxis: Patient already on Eliquis Goals of care: Full code, discussed for >16 minutes on 07/08/24 Plan discussed with patient Plan discussed with Dr. Busby Plan discussed with: Patient, Other (RN) My Orders My Orders Orders - KENNETH MCINTYRE RESIDENT Procedure Category Date Status Time Nm Vq Scan NM 07/08/24 Logged 12:04 Percu.Venous XY 07/08/24 Taken Thrombectomy 15:33 Date of Service: Jul 08, 2024 Billing Provider: LISA BUSBY MD Common Visit Codes: [id number] INP/OBS CARE(HIGH) Coding Comment Comment I saw and evaluated the patient. I reviewed the residents note and agree with findings and plan as documented in the residents note. Status post thrombectomy, likely old DVT, however we will still consider anticoagulation failure, we will continue with heparin for now, discontinue Eliquis, we will discuss with patient however likely we will use other anticoagulation for her at home for discharge KENNETH MCINTYRE Jul 08, 2024 17:44 LISA BUSBY MD Jul 08, 2024 20:41
--- NOTE | 2024-07-08 19:09 | DVH ---
SOTERO LIMAU.VENOUS THROMBECTOMY, HISTORY: Recurrent left DVT on Eliquis with history of PE and painful left leg with edema. PROCEDURE: Following informed consent, the patient was placed on the fluoroscopic table in a prone po sition and the left popliteal fossa draped in sterile fashion. IV sedation was administered throughou t the case. With ultrasound guidance, micro-puncture access into the left popliteal vein was achieved and contrast injected through the micro sheath. Then, a 6 Greek vascular sheath was placed. Using a Cicero catheter and glide advantage wire, the IVC was accessed after crossing through the thrombus in the popliteal and femoral vein. An ACT was obtained. 5000 units of heparin was given IV. Using the ca theter, the wire was placed into the SVC. The sheath was then exchanged for the 16 Fr Inari Clot Trie miriam sheath after dilation of the popliteal vein. Then, the Clot Triever device was placed to the leve l of the lesser trochanter and multiple passes were performed for thrombectomy of the femoral and pop liteal vein. Additional 2000 units of heparin was given. A owen wire and catheter were placed into t he popliteal vein and venogram obtained of the popliteal vein and femoral vein. Balloon angioplasty w as then performed of the distal femoral vein with an 8 mm Balloon. Additional thrombectomy was perfor med of the distal femoral vein with the Clot Triever device. Completion venogram was performed after downsizing to the 6 Fr sheath. A flow stasis device and manual pressure was used to obtain hemostasis after removing the wire and sheaths.. The patient tolerated the procedure well, without immediate co mplication. DAP 25.32 FLUOROSCOPY TIME: 18.6 minutes CONTRAST USED: 85 mL Visi 300. SEDATION: Dr. Noman Davis was personally responsible for the administration of moderate sedation during the procedure performed, including the use of an independent trained observer who had no other duties during the procedure. The drugs utilized were IV fentanyl and versed (see nursing log for details). The total time of supervision by the attending physician was approximately 120 minutes. FINDINGS: Initial venogram of the popliteal and femoral veins shows filling defect in the popliteal a nd femoral veins. Filling defect was also seen in the proximal femoral vein near the juntion with the CFV. No filling defect seen in the iliac or IVC to suggest for thrombus. Thrombectomy performed with the Inari Clot Treiver device and chronic appearing thrombus was removed. Angioplasty of the distal femoral vein to 8 mm shows improved patency. Completion venogram shows improved patency of the femora l and popliteal vein with improved forward blood flow. Some small residual thrombus in the distal fem oral vein remains however. IMPRESSION: Left femoral and popliteal vein acute/chronic deep venous thrombus status post mechanical thrombectom y using the Inari Clot Treiver device placed through the left popliteal vein. Additional venoplasty o f the left femoral vein with an 8 mm balloon. Chronic appearing thrombus was removed. Completion venogram shows improved blood flow and patency of the left femoral and popliteal veins. No thrombus seen in the iliac vein or IVC. Plan: Left leg straight for 2 hours. Ok to resume anticoagulation. Can remove the flow stasis device on Thursday.
[2024-07-09] VITALS (8 sets, daily range): BP systolic 108–123; BP diastolic 70–79; PULSE 68–95; RESP 14–20; TEMP 97.8–98.7; O2SAT 95–98
[2024-07-09 06:31] LABS: Basophils # (auto) 0.1 10 ^3/uL (0-0.2); Basophils % (auto) 0.8 % (0.0-2.0); Eosinophils # (auto) 0.4 10 ^3/uL (0-0.8); Eosinophils % (auto) 6.1 % (0.0-7.0); Hematocrit 44.6 % (41.0-53.0); Hemoglobin 14.9 g/dL (13.5-17.5); Lymphocytes # (auto) 2.4 10 ^3/uL (0.4-5.4); Lymphocytes % (auto) 36.8 % (10.0-50.0); Mean Corpuscular Hemoglobin 29.5 pg (28.0-32.0); Mean Corpuscular Hgb Conc. 33.5 g/dL (32.0-36.0); Monocytes # (auto) 0.6 10 ^3/uL (0-1.3); Monocytes % (auto) 8.4 % (0.0-12.0); Neutrophils # (auto) 3.2 10 ^3/uL (1.6-8.6); Neutrophils % (auto) 47.9 % (37.0-80.0); Nucleated Red Blood Cells % 0.1 %; Platelet Count (auto) 239 10^3/uL (140-450); Red Blood Cells 5.07 10^6/uL (4.5-5.90); Red Cell Distribution Width 13.1 % (11.8-14.3); White Blood Cell 6.7 10^3/uL (4.4-10.8)
[2024-07-09 06:38] LABS: Anion Gap 6 (5-15); Carbon Dioxide 27 mmol/L (20-31); Chloride 105 mmol/L (98-107); Potassium 4.3 mmol/L (3.5-5.1); Sodium 138 mmol/L (136-145)
[2024-07-09 06:40] LABS: Calcium 9.9 mg/dL (8.7-10.4)
[2024-07-09 06:44] LABS: Glucose 98 mg/dL (74-106)
[2024-07-09 06:45] LABS: BUN/Creatinine Ratio 11.5 (10.0-20.0); Blood Urea Nitrogen 11 mg/dL (9-23)
--- NOTE | 2024-07-09 13:06 | DVH ---
Bilateral lower extremity venous duplex Clinical History: chronic dvt; establish baseline s/p thrombectomy Comparison: US BILAT LOWER DVT on DOS: 07/07/24, US LT LOWER DVT on DOS: 06/18/24 Technique: Duplex Doppler evaluation of the deep venous systems of both lower extremities from the common femora l veins to the popliteal veins including color Doppler and spectral/pulsed waveform analysis was perf ormed. Findings: RIGHT SIDE: The common femoral vein demonstrates appropriate compressibility and waveform variability . There is compressibility/patency of the great saphenous vein at the proximal thigh . The femoral vein demonstrates appropriate compressibility and waveform variability . The deep femoral vein demonstrates appropriate compressibility and waveform variability . The popliteal vein demonstrates appropriate compressibility and waveform variability . There is color flow at the tibioperoneal trunk and in the posterior tibial vein. LEFT SIDE: The common femoral vein demonstrates appropriate compressibility and waveform variability . There is compressibility/patency of the great saphenous vein at the proximal thigh . Residual nonocclusive eccentric DVT noted in proximal, mid and distal segments of the femoral vein, p opliteal and posterior tibial veins with lack of compressibility. Impression: 1. Residual nonocclusive DVT in the left femoral, popliteal and posterior tibial veins. 2. No DVT in the right lower extremity.
--- NOTE | 2024-07-09 13:24 | DVHPNRES ---
Progress Note Date Seen: Jul 09, 2024 Resident Creating Document: KENNETH MCINTYRE RESIDENT Medical Necessity Reason Pt with a Central, PICC or Fol: No Subjective Review of Systems Patient is a 33-year-old male with past medical history of DVT, pulmonary embolism s/p mechanical thrombectomy 2 weeks ago, who came in due to swelling, tightness of the left lower extremity for the past 2 days. Patient was recently admitted at the [facility] for a left lower extremity DVT, PE and underwent mechanical thrombectomy and was discharged on Eliquis 5 mg b.i.d. that he has been compliant with. Patient was instructed during past hospitalization to come to the hospital if he feels any symptoms in lower extremity. Patient denies having similar symptoms in the past. Lower extremity Doppler showed left-sided DVT from superficial femoral vein to the posterior tibial vein. Past surgical history: Mechanical thrombectomy Home medications: Eliquis 5 mg b.i.d. Past Hospitalization: In May 2024 for DVT Social & Personal history: Patient lives with family. Denies using tobacco, alcohol, drugs. Quit drinking alcohol 2-3 months ago, prior to that was drinking 1-2 cans of beer daily. Patient works in construction. Allergies: Denies Patient seen and examined at bedside. Patient is alert and oriented to time, place person and responding to all questions. Patient is s/p mechanical thrombectomy, currently denying any active ongoing pain or discomfort. Objective vital signs Vital Sign Date Time Temp Pulse Resp B/P (MAP) Pulse Ox O2 Delivery O2 Flow Rate FiO2 07/09/24 09:02 97.8 79 16 111/70 (84) 98 97.8 07/08/24 20:00 Room Air* 0 21 Total Intake and Output 07/08/24 07/08/24 07/09/24 15:00 23:00 07:00 Intake Total 240 ml 900 ml Output Total 700 ml 700 ml Balance -700 ml 240 ml 200 ml medications Current Medications Medications Dose Ordered Sig/Juliano Route Start Time Stop Time Status Last Admin Dose Admin Sodium Chloride 10 ml Q8HR IV 07/07/24 22:00 07/08/24 21:47 10 ML Acetaminophen 325 mg Q4HP PRN PO 07/07/24 20:30 07/08/24 16:21 325 MG Ondansetron HCl 4 mg Q4HP PRN IV 07/07/24 20:30 Nitroglycerin 0.4 mg Q5MINP PRN SL 07/07/24 20:30 Morphine Sulfate 2 mg Q30M PRN IV 07/07/24 20:30 Apixaban 5 mg BID PO 07/08/24 10:00 07/09/24 10:18 5 MG Examination General Appearance: Cooperative. Well developed. Well nourished. NAD Head Exam: Normal inspection Neck Exam: Normal inspection. Non-tender. Normal alignment Pulmonary/Respiratory: Chest non-tender. Clear bilateral breath sounds, no crackles, no wheezing. Cardiovascular/Chest: Regular rate and rhythm. No murmurs. No JVD. Peripheral Pulses: 2+ Radial (R). 2+ Radial (L). 2+ Pedal (R). 2+ Pedal (L) Abdominal Exam: Normal bowel sounds. Soft. normal abdomen, no visible veins, Nontender. No hepatospenomegaly. No masses Ankle Exam: Negative ankle edema Lower extremities: Negative lower extremity edema. Left lower extremity mildly swollen, flow stasis device in place Neuro/Mental Status: A&O x4. Coherent. Thoughts/Psych: Normal thought pattern. Appropriate mood and affect. Good judgement and insight Skin Exam: Normal inspection. Normal color. Warm. Dry laboratory and microbiology Laboratory Tests 07/09/24 06:08 Test 07/09/24 06:08 Range/Units Serum Glucose 98 74-106 mg/dL Microbiology Date/Time Source Procedure Growth Status 07/07/24 23:00 Nose MRSA Screen - Final Complete Labs and/or images reviewed: Labs reviewed by me, Image(s) reviewed by me Problem List/Assessment/Plan Problem List/Assessment/Plan DVT left lower extremity, acute/chronic DVT Anticoagulation failure less likely considering chronic DVT as per thrombectomy report Questionable pulmonary embolism - extremity venous study: Left-sided DVT from the superficial femoral vein to the posterior tibial vein. - CXR: No acute cardiopulmonary disease - patient underwent thrombectomy on 07/08/2024 - apixaban 5 mg p.o. b.i.d. - ordered V/Q scan to rule out pulmonary embolism - ordered repeat lower extremity Doppler which showed: Residual nonocclusive DVT in the left femoral, popliteal and posterior tibial veins. No DVT in the right lower extremity. DVT prophylaxis: Patient already on Eliquis Goals of care: Full code, discussed for >16 minutes on 07/08/24 Plan discussed with patient Plan discussed with Dr. Busby Plan discussed with: Patient, Other (RN) My Orders My Orders Orders - KENNETH MCINTYRE RESIDENT Procedure Category Date Status Time Percu.Venous XY 07/08/24 Resulted Thrombectomy 15:33 * Soaking Pit Operator CONS 07/09/24 Transmitted Consult Bilat Lower Dvt US 07/09/24 Resulted 11:42 Date of Service: Jul 09, 2024 Billing Provider: LISA BUSBY MD Common Visit Codes: [id number] INP/OBS CARE(HIGH) Coding Comment Comment I saw and evaluated the patient. I reviewed the residents note and agree with findings and plan as documented in the residents note. KENNETH MCINTYRE Jul 09, 2024 13:24 LISA BUSBY MD Jul 09, 2024 22:50
[2024-07-10] VITALS (8 sets, daily range): BP systolic 113–124; BP diastolic 73–83; PULSE 63–95; RESP 16–18; TEMP 97.7–98.9; O2SAT 95–98
--- NOTE | 2024-07-10 17:14 | DVHPNRES ---
Progress Note Date Seen: Jul 10, 2024 Resident Creating Document: DEB HINOJOSA RESIDENT Medical Necessity Reason Pt with a Central, PICC or Fol: No Subjective Patient reports: No new complaints, Feels better Changes from previous H/P or p: No Changes Review of Systems: HEENT:Normal, CVS:Normal, RESPIRATORY:Normal, GI:Normal, :Normal, MSK:Abnormal (Returns left sided DVT, flow device in place), NEURO:Normal Objective vital signs Vital Sign Date Time Temp Pulse Resp B/P (MAP) Pulse Ox O2 Delivery O2 Flow Rate FiO2 07/10/24 09:00 97.7 63 18 120/83 (95) 98 97.7 07/10/24 08:00 Room Air* 0 21 Total Intake and Output 07/09/24 07/09/24 07/10/24 15:00 23:00 07:00 Intake Total 1600 ml 600 ml Output Total 1300 ml 1000 ml Balance 300 ml -400 ml medications Current Medications Medications Dose Ordered Sig/Juliano Route Start Time Stop Time Status Last Admin Dose Admin Sodium Chloride 10 ml Q8HR IV 07/07/24 22:00 07/10/24 15:05 10 ML Acetaminophen 325 mg Q4HP PRN PO 07/07/24 20:30 07/08/24 16:21 325 MG Ondansetron HCl 4 mg Q4HP PRN IV 07/07/24 20:30 Nitroglycerin 0.4 mg Q5MINP PRN SL 07/07/24 20:30 Morphine Sulfate 2 mg Q30M PRN IV 07/07/24 20:30 Apixaban 5 mg BID PO 07/08/24 10:00 07/10/24 09:26 5 MG Examination: GENERAL:Normal, HEENT:Normal, NECK:Normal, LUNGS:Normal, CVS:Normal, ABDOMEN:Normal, MSK:Normal, SKIN:Normal, NEURO:Normal, :Normal laboratory and microbiology Laboratory Tests 07/09/24 06:08 Test 07/09/24 06:08 Range/Units Serum Glucose 98 74-106 mg/dL Microbiology Date/Time Source Procedure Growth Status 07/07/24 23:00 Nose MRSA Screen - Final Complete Labs and/or images reviewed: Labs reviewed by me, Image(s) reviewed by me Problem List/Assessment/Plan Problem List/Assessment/Plan Hospital Course: Mr. Simmons, a 33-year-old Primarily German-speaking male with a history of DVT and pulmonary embolism, who underwent a mechanical thrombectomy two weeks ago. He presented with swelling and tightness in his left lower extremity for the past two days. Recently discharged from [facility] on Eliquis 5 mg b.i.d., he has been compliant with his medication. He was advised to return to the hospital if he experienced any symptoms in his lower extremity. Last hospitalization around June 18 of this year with 1st episode of DVT needed clot extraction with INARI device. A Doppler ultrasound revealed a left-sided DVT from the superficial femoral vein to the posterior tibial vein. He lives with his family, denies using tobacco, alcohol, or drugs, and works in construction. He quit drinking alcohol 2-3 months ago. On examination, he is alert, oriented, and currently denies any active pain or discomfort. left lower leg swelling improved, hemodynamically stable, referral vascular function intact, flow stasis device in place. # DVT left lower extremity acute on chronic: Noted on venous study left-sided DVT superficial fentanyl pain to posterior tibial vein status post in her thrombectomy 07/08/2024. Repeat ultrasound shows residual DVT in the left humeral cooperative and posterior tibial vein. pain management as needed. We will hydration to cont # DVT s/p Mechanical thrombectomy # low probability of anticoagulation failure with Eliquis: Likely progression of the previous known DVT. As per patient patient is religiously taking apixaban 5 mg p.o. b.i.d.. # pulmonary embolism, low probability : Unremarkable chest exam, EKG, vitals, unremarkable. CXR unremarkable, V/Q scan pending to rule out pulmonary embolism/ CTEPH. # hypercoagulable disorder: Workup so far negative, negative workup so far, intact renal function, intact liver function. Protein C, protein S deficiency and factor 5 Leiden mutation ruled out. Further workup need to be done outpatient castañeda with close follow up with the hemato oncologist. # grade 1 obesity # Diet: Regular diet to continue. # DVT prophylaxis: Continue Eliquis Barriers to discharge: IR /radiology following the patient, with flow stasis device for further intervention on Thursday07/11/2024. Patient remains in the hospital under Observation. Discharge planning to be started post IR plan of care established Case discussed with Dr. Weeks. Code status: Full code. Complex patient care discussion needed total 39 minutes. plan discussed with staff interpreter at bedside. Plan discussed with: Patient, Other (Primary team, RN) Date of Service: Jul 11, 2024 Billing Provider: LISA WEEKS MD Common Visit Codes: [id number] INP/OBS CARE(MOD) Coding Comment Comment I saw and evaluated the patient. I reviewed the residents note and agree with findings and plan as documented in the residents note. DEB HINOJOSA RESIDENT Jul 10, 2024 17:14 LISA WEEKS MD Jul 11, 2024 12:56
[2024-07-11 01:00] VITALS: BP 100/66; PULSE 60; RESP 19; TEMP 98.5; O2SAT 99
[2024-07-11 05:00] VITALS: BP 108/58; PULSE 71; RESP 17; TEMP 98.4; O2SAT 99
[2024-07-11 08:00] VITALS: BP 107/70; PULSE 70; RESP 16; RESP 18; TEMP 97.5; O2SAT 98
[2024-07-11 12:00] VITALS: BP 121/77; PULSE 90; RESP 20; TEMP 97.3; O2SAT 97
[2024-07-11] MEDS ORDERED: APIX5TAB PO (12:15)
--- NOTE | 2024-07-11 12:49 | DVHDSRES ---
Discharge Summary Date of Admission Resident Creating Document: DEB HINOJOSA RESIDENT Jul 07, 2024 at 20:28 Date of Discharge: Jul 11, 2024 Labs/Diagnostic Data: Laboratory Results Test 07/09/24 06:08 07/08/24 04:58 07/08/24 00:15 07/07/24 23:39 White Blood Count 6.7 10^3/uL (4.4-10.8) Red Blood Count 5.07 10^6/uL (4.5-5.90) Hemoglobin 14.9 g/dL (13.5-17.5) Hematocrit 44.6 % (41.0-53.0) Mean Corpuscular Volume 88.0 fL (80.0-100.0) Mean Corpuscular Hemoglobin 29.5 pg (28.0-32.0) Mean Corpuscular Hemoglobin Concent 33.5 g/dL (32.0-36.0) Red Cell Distribution Width 13.1 % (11.8-14.3) Platelet Count 239 10^3/uL (140-450) Mean Platelet Volume 8.2 fL (6.9-10.8) Neutrophils (%) (Auto) 47.9 % (37.0-80.0) Lymphocytes (%) (Auto) 36.8 % (10.0-50.0) Monocytes (%) (Auto) 8.4 % (0.0-12.0) Eosinophils (%) (Auto) 6.1 % (0.0-7.0) Basophils (%) (Auto) 0.8 % (0.0-2.0) Neutrophils # (Auto) 3.2 10 ^3/uL (1.6-8.6) Lymphocytes # (Auto) 2.4 10 ^3/uL (0.4-5.4) Monocytes # (Auto) 0.6 10 ^3/uL (0-1.3) Eosinophils # (Auto) 0.4 10 ^3/uL (0-0.8) Basophils # (Auto) 0.1 10 ^3/uL (0-0.2) Nucleated Red Blood Cells 0.1 % Sodium Level 138 mmol/L (136-145) Potassium Level 4.3 mmol/L (3.5-5.1) Chloride Level 105 mmol/L (98-107) Carbon Dioxide Level 27 mmol/L (20-31) Anion Gap 6 (5-15) Blood Urea Nitrogen 11 mg/dL (9-23) Creatinine 0.96 mg/dL (0.700-1.30) Glomerular Filtration Rate Calc 106 mL/min (>90) BUN/Creatinine Ratio 11.5 (10.0-20.0) Serum Glucose 98 mg/dL (74-106) Calcium Level 9.9 mg/dL (8.7-10.4) Total Bilirubin 0.7 mg/dL (0.2-1.0) Aspartate Amino Transferase (AST) 19 U/L (13-40) Alanine Aminotransferase (ALT) 48 U/L (7-40) Alkaline Phosphatase 163 U/L (46-116) Total Protein 7.2 g/dL (5.7-8.2) Albumin 4.2 g/dL (3.2-4.8) Vitamin B12 Level 899 pg/mL (211-911) Vitamin D 25-Hydroxy 39.7 ng/mL (30.0-100) Thyroid Stimulating Hormone (TSH) 1.39 uIU/mL (0.55-4.78) Urine Color Light-yellow (Yellow) Urine Clarity Clear (Clear) Urine pH 5.5 (5.0-9.0) Urine Specific [place] 1.019 (1.001-1.035) Urine Protein Negative (Negative) Urine Ketones Negative (Negative) Urine Blood Negative /uL (Negative) Urine Nitrite Negative (Negative) Urine Bilirubin Negative (Negative) Urine Urobilinogen Normal mg/dL (Negative) Urine Leukocyte Esterase Negative /uL (Negative) Urine RBC <1 /hpf (0 - 3) Urine WBC <1 /hpf (0 - 3) Urine Squamous Epithelial Cells None seen /hpf (<5) Urine Bacteria None seen /hpf (None Seen) Urine Mucus Few (None Seen) Urine Glucose Normal mg/dL (Normal) Urine Opiates Screen Neg (NEGATIVE) Urine Fentanyl Screen Neg (NEGATIVE) Urine Barbiturates Screen Neg (NEGATIVE) Urine Phencyclidine Screen Neg (NEGATIVE) Urine Amphetamines Screen Neg (NEGATIVE) Urine Benzodiazepines Screen Neg (NEGATIVE) Urine Cocaine Screen Neg (NEGATIVE) Urine Cannabinoids Screen Neg (NEGATIVE) Prothrombin Time 11.7 sec (9.3-11.8) Prothrombin Time INR 1.11 (0.9-1.15) Activated Partial Thromboplast Time 27.3 SEC (24.5-34.5) Other Laboratory Tests 07/09/24 06:08 Brief Hx & Hospital Course: Patient is a 33-year-old male with past medical history of DVT, pulmonary embolism s/p mechanical thrombectomy 2 weeks ago, who came in due to swelling, tightness of the left lower extremity for the past 2 days. Patient was recently admitted at the [facility] for a left lower extremity DVT, PE and underwent mechanical thrombectomy and was discharged on Eliquis 5 mg b.i.d. that he has been compliant with. Patient was instructed during past hospitalization to come to the hospital if he feels any symptoms in lower extremity. Patient denies having similar symptoms in the past. Lower extremity Doppler showed left-sided DVT from superficial femoral vein to the posterior tibial vein. Hospital course: Patient underwent venous thrombectomy on 07/08/2024 using INARI clot treiver device placed through the left popliteal vein. Additional venoplasty of the left femoral vein with an 8 mm balloon. Chronic appearing thrombus was removed. Complete venogram shows improved blood flow and patency of the left femoral and popliteal veins. No thrombus seen in the iliac vein or IVC. Patient was then instructed to keep the leg straight for 2 hours and anticoagulation with Eliquis 5 mg b.i.d. was resumed. Flow stasis device was also placed which was removed on Thursday07/11/2024. Repeat lower extremity Doppler showed residual nonocclusive DVT in the left femoral, popliteal and posterior tibial veins. No DVT in the right lower extremity. On the day of discharge, patient appeared well, had stable vital signs and denied any active ongoing pain or discomfort. Interventional radiology clearance was sought and patient was discharged home with Eliquis 5 mg p.o. b.i.d.. Patient was instructed to follow up with Cardiology in 1-2 weeks, and also instructed to follow up with PCP at his earliest convenience. His hospital course was uncomplicated. General Appearance: Cooperative. Well developed. Well nourished. NAD Head Exam: Normal inspection Neck Exam: Normal inspection. Non-tender. Normal alignment Pulmonary/Respiratory: Chest non-tender. Clear bilateral breath sounds, no crackles, no wheezing. Cardiovascular/Chest: Regular rate and rhythm. No murmurs. No JVD. Peripheral Pulses: 2+ Radial (R). 2+ Radial (L). 2+ Pedal (R). 2+ Pedal (L) Abdominal Exam: Normal bowel sounds. Soft. normal abdomen, no visible veins, Nontender. No hepatospenomegaly. No masses Ankle Exam: Negative ankle edema Lower extremities: Negative lower extremity edema. Left lower extremity mildly swollen Neuro/Mental Status: A&O x4. Coherent. Thoughts/Psych: Normal thought pattern. Appropriate mood and affect. Good judgement and insight Skin Exam: Normal inspection. Normal color. Warm. Dry Operations or Procedures XY PERCU.VENOUS THROMBECTOMY, HISTORY: Recurrent left DVT on Eliquis with history of PE and painful left leg with edema. PROCEDURE: Following informed consent, the patient was placed on the fluoroscopic table in a prone position and the left popliteal fossa draped in sterile fashion. IV sedation was administered throughout the case. With ultrasound guidance, micro-puncture access into the left popliteal vein was achieved and contrast injected through the micro sheath. Then, a 6 [place] vascular sheath was placed. Using a Jose catheter and glide advantage wire, the IVC was accessed after crossing through the thrombus in the popliteal and femoral vein. An ACT was obtained. 5000 units of heparin was given IV. Using the catheter, the wire was placed into the SVC. The sheath was then exchanged for the 16 Fr Inari Clot Triever sheath after dilation of the popliteal vein. Then, the Clot Triever device was placed to the level of the lesser trochanter and multiple passes were performed for thrombectomy of the femoral and popliteal vein. Additional 2000 units of heparin was given. A owen wire and catheter were placed into the popliteal vein and venogram obtained of the popliteal vein and femoral vein. Balloon angioplasty was then performed of the distal femoral vein with an 8 mm Balloon. Additional thrombectomy was performed of the distal femoral vein with the Clot Triever device. Completion venogram was performed after downsizing to the 6 Fr sheath. A flow stasis device and manual pressure was used to obtain hemostasis after removing the wire and sheaths.. The patient tolerated the procedure well, without immediate complication. DAP 25.32 FLUOROSCOPY TIME: 18.6 minutes CONTRAST USED: 85 mL Visi 300. SEDATION: Dr. Noman Davis was personally responsible for the administration of moderate sedation during the procedure performed, including the use of an independent trained observer who had no other duties during the procedure. The drugs utilized were IV fentanyl and versed (see nursing log for details). The total time of supervision by the attending physician was approximately 120 minutes. FINDINGS: Initial venogram of the popliteal and femoral veins shows filling defect in the popliteal and femoral veins. Filling defect was also seen in the proximal femoral vein near the juntion with the CFV. No filling defect seen in the iliac or IVC to suggest for thrombus. Thrombectomy performed with the Inari Clot Treiver device and chronic appearing thrombus was removed. Angioplasty of the distal femoral vein to 8 mm shows improved patency. Completion venogram shows improved patency of the femoral and popliteal vein with improved forward blood flow. Some small residual thrombus in the distal femoral vein remains however. IMPRESSION: Left femoral and popliteal vein acute/chronic deep venous thrombus status post mechanical thrombectomy using the Inari Clot Treiver device placed through the left popliteal vein. Additional venoplasty of the left femoral vein with an 8 mm balloon. Chronic appearing thrombus was removed. Completion venogram shows improved blood flow and patency of the left femoral and popliteal veins. No thrombus seen in the iliac vein or IVC. Plan: Left leg straight for 2 hours. Ok to resume anticoagulation. Can remove the flow stasis device on Thursday. Bilateral lower extremity venous duplex Clinical History: chronic dvt; establish baseline s/p thrombectomy Comparison: US BILAT LOWER DVT on DOS: 07/07/24, US LT LOWER DVT on DOS: 06/18/24 Technique: Duplex Doppler evaluation of the deep venous systems of both lower extremities from the common femoral veins to the popliteal veins including color Doppler and spectral/pulsed waveform analysis was performed. Findings: RIGHT SIDE: The common femoral vein demonstrates appropriate compressibility and waveform variability . There is compressibility/patency of the great saphenous vein at the proximal thigh . The femoral vein demonstrates appropriate compressibility and waveform variability . The deep femoral vein demonstrates appropriate compressibility and waveform variability . The popliteal vein demonstrates appropriate compressibility and waveform variability . There is color flow at the tibioperoneal trunk and in the posterior tibial vein. LEFT SIDE: The common femoral vein demonstrates appropriate compressibility and waveform variability . There is compressibility/patency of the great saphenous vein at the proximal thigh . Residual nonocclusive eccentric DVT noted in proximal, mid and distal segments of the femoral vein, popliteal and posterior tibial veins with lack of compressibility. Impression: 1. Residual nonocclusive DVT in the left femoral, popliteal and posterior tibial veins. 2. No DVT in the right lower extremity. Condition at Discharge: Good Final Diagnosis/Problems List DVT left lower extremity, acute/chronic DVT Anticoagulation failure less likely considering chronic DVT as per thrombectomy report Discharge Disposition: Home Discharge Instruct/Medications Diet: Regular Activity: No Restrictions, As Tolerated Follow Up/Referral: please follow up with pcp in 1-2 weeks please follow up with cardiology in 1-2 weeks Medications: apixaban 5mg twice a day Discharge Statement: "Patient was advised to return to the ER or call 911 if any headaches, dizziness, shortness of breath, chest pain, abdominal pain, bleeding, fevers, or worsening of medical condition. Patient was counseled about treatment plan, medications, possible side effects, patientverbalized understanding. All questions were answered to the best of my ability. This discharge took greater then 30 minutes in planning, reviewing documentation, counseling the patient, and discussing with other team members." ASSESSMENT ASSESSMENT Assessment DVT left lower extremity, acute/chronic DVT Anticoagulation failure less likely considering chronic DVT as per thrombectomy report Date of Service: Jul 11, 2024 Billing Provider: LISA BUSBY MD Common Visit Codes: [id number] DISCH DAY >30min Coding Comment Comment I saw and evaluated the patient. I reviewed the residents note and agree with findings and plan as documented in the residents note. KENNETH MCINTYRE Jul 11, 2024 12:49 LISA BUSBY MD Jul 11, 2024 12:59
[2024-07-11 13:12] VITALS: TEMP 36.4
== END 2024-07-11 14:29 | disposition home or self-care (01) | DRG 182 ==
LOC: ER 15:53 → OVERFLOW 20:28 → CENTRAL 20:29
PROVIDERS: ADMIT Student in an Organized Health Care Education/Training Program; ATTEND Student in an Organized Health Care Education/Training Program
PROC: B51C1ZZ Fluoroscopy of Left Lower Extremity Veins using Low Osmolar Contrast (ICD-10-PCS; principal; 2024-07-08)
PROC: 067N3ZZ Dilation of Left Femoral Vein, Percutaneous Approach (ICD-10-PCS; 2024-07-08)
PROC: 06CN3ZZ Extirpation of Matter from Left Femoral Vein, Percutaneous Approach (ICD-10-PCS; 2024-07-08)
DX: I82.4Z2 Acute embolism and thrombosis of unspecified deep veins of left distal lower extremity (principal); E66.9 Obesity, unspecified; Z79.899 Other long term (current) drug therapy; Z68.33 Body mass index [BMI] 33.0-33.9, adult; Z86.711 Personal history of pulmonary embolism; Z79.01 Long term (current) use of anticoagulants; I82.5Z2 Chronic embolism and thrombosis of unspecified deep veins of left distal lower extremity
CPT/HCPCS: 36415; 37187; 71045; 80048; 80053; 80307; 81001; 82306; 82607; 84443; 85025; 85610; 85730; 87081; 93970; 99152; 99291; C1894; G0378; J2250; Q9967